=== PATIENT | female | born 1950 | race Hispanic/Latino ===

== ENCOUNTER 2023-03-30 00:43 | Emergency (ER) | payer MEDICARE ==
[~2023-03-30] VITALS: Ht 157.5 cm; Wt 59.0 kg
[2023-03-30] MEDS ORDERED: HYDROCODONE/ACETAMINOPHEN 5/325 MG TAB PO ONE (02:00)
[2023-03-30] MEDS ORDERED: CYCL10TA16 PO (03:01)
[2023-03-30 03:43] VITALS: BP 155/88
== END 2023-03-30 03:45 | disposition home or self-care (01) ==
LOC: EDH 00:43
DX: M25.511 Pain in right shoulder (principal); Z88.1 Allergy status to other antibiotic agents
CPT/HCPCS: 73030